=== PATIENT | female | born 1935 | race Caucasian/White ===

== ENCOUNTER 2019-05-02 10:55 | Inpatient (IN) | payer MEDICARE, OTHER ==
[2019-05-02 11:21] VITALS: BMI 28.1
[2019-05-02] MEDS: SODIUM CHLORIDE 1,000 ML IV SCH (12:31)
--- NOTE | 2019-05-02 12:38 | PDOC ---
History of Present Illness - General Chief Complaint: Weakness Stated Complaint: NUMBNESS Time Seen by Provider: 05/02/19 11:28 - History of Present Illness Initial Comments: 05/02/19 12:32 83 y/o F with PMH of HTN, HLD, Afib (on ASA), CAD, hypothyroidism, mild cognitive impairement, osteoporosis who presents to the ED because of weakness. Pt is korean speaking thus history was obtained from daughter and granddaughter. According to the family, 2 days ago she developed a loss of appetite and numbness in her fingers which resolved within 2 hours. The next day , she woke up dizzier than usual with increased weakness in her legs and fell when she attempted to exit her bedroom. She denies any blurry vision, PHILLIP, palpitation, N/V or LOC prior to fall. She admits to hitting her head and right shoulder while trying to break her fall. She persists that she maintained consciousness during and after the fall. This morning, the patient c/o headache which she has not experienced since her 20s and that it was different from her past migraine headaches. At that point, pt was taken to her PCP Dr Goodwin office ( but seen by Breann). Pt sent over to ED for head CT and further evaluation. On further questioning, family admits that pt has not taken her meds since 3 days ago, as she might have thrown them away. Pt denies any F/C, chest pain, SOB, active FND, or change in urine or BM. Per family, pt is also getting more forgetful and mildly confused from before Allergies: PCNs, General Anesthesia PSH:cataract surgery, cosmetic chin surgery Social : former smoker; quit in 50 yrs ago, no EtOH, or illicit drug use. lives at home family hx: colon cancer PE: NIHSS 0 Gen: NAD NEURO: CN 2-12 intact, motor strength 5/5 in all muscle groups, sensation intact throughout, gait at pt baseline with walker MSK: decreased ROM of the R shoulder on abduction HEENT: PERRLA, dry mucous membranes, conjuctiva/sclera clear CHEST: vesicular breath sounds b/l , no wheezing, rales or ronchi HEART: Irregularly irregular, no MRG Abdomen: +BS, mild tenderness on deep palpation of Lower abdomen extremities: no edema Assessment: based on HPI and PE DDX include: TIA ( pt has Afib, CAD, HTN , no meds for3 days prior) vs syncope (poor fluid intake, CAD, HLD, HTN) 05/02/19 12:43 Plan: CBC, CMP, mag, phos, Head and Cspine w/o contrast, r shoulder Xray to r/o fracture, EKG to r/o arrhythmia, troponin I, Pt/INR, PTT, orthostatic VS will also get UA and urine culture 1L NS for dehydration will administer all of home meds s/p results of Head CT 05/02/19 13:[address] shpwed left frontal, posterior and superiod infarct of indeterminant age. Based on finding, CVA vs TIA more likely diagnosis will obtain dysphagia screen, if pass, will resume pt home meds except for BP meds to allow for permissive HTN in case of CVA. will order an MRI w/o contrast of the brain and consider neuro consult ? 05/02/19 13:28 CBC WBC 6.8 K/mm3 (4.0-10.0) 05/02/19 11:30 RBC 4.61 M/mm3 (3.60-5.2) 05/02/19 11:30 Hgb 14.2 GM/dL (10.7-15.3) 05/02/19 11:30 Hct 42.3 % (32.4-45.2) 05/02/19 11:30 MCV 91.9 fl (80-96) 05/02/19 11:30 MCH 30.8 pg (25.7-33.7) 05/02/19 11:30 MCHC 33.6 g/dl (32.0-36.0) 05/02/19 11:30 RDW 14.9 % (11.6-15.6) 05/02/19 11:30 Plt Count 138 K/MM3 (134-434) 05/02/19 11:30 MPV 11.7 fl (7.5-11.1) H 05/02/19 11:30 Absolute Neuts (auto) 3.1 K/mm3 (1.5-8.0) 05/02/19 11:30 Neutrophils % 45.1 % (42.8-82.8) 05/02/19 11:30 Lymphocytes % 38.8 % (8-40) 05/02/19 11:30 Monocytes % 12.6 % (3.8-10.2) H 05/02/19 11:30 Eosinophils % 3.1 % (0-4.5) 05/02/19 11:30 Basophils % 0.4 % (0-2.0) 05/02/19 11:30 Nucleated RBC % 0 % (0-0) 05/02/19 11:30 INR, PTT INR 0.99 (0.83-1.09) 05/02/19 11:30 PT 11.7 PTT 33.1 CBC and coag unremarkable UA and chem pending 05/02/19 14:08 CMP Sodium 140 mmol/L (136-145) 05/02/19 11:30 Potassium 3.5 mmol/L (3.5-5.1) 05/02/19 11:30 Chloride 105 mmol/L (98-107) 05/02/19 11:30 Carbon Dioxide 29 mmol/L (21-32) 05/02/19 11:30 Anion Gap 6 MMOL/L (8-16) L 05/02/19 11:30 BUN 14.8 mg/dL (7-18) 05/02/19 11:30 Creatinine 1.0 mg/dL (0.55-1.3) 05/02/19 11:30 Est GFR (CKD-EPI)AfAm 60.33 05/02/19 11:30 Est GFR (CKD-EPI)NonAf 52.06 05/02/19 11:30 Random Glucose 87 mg/dL (74-106) 05/02/19 11:30 Calcium 8.9 mg/dL (8.5-10.1) 05/02/19 11:30 Phosphorus 2.4 mg/dL (2.5-4.9) L 05/02/19 11:30 Magnesium 2.3 mg/dL (1.8-2.4) 05/02/19 11:30 Total Bilirubin 0.8 mg/dL (0.2-1) 05/02/19 11:30 AST 56 U/L (15-37) H 05/02/19 11:30 ALT 76 U/L (13-61) H 05/02/19 11:30 Alkaline Phosphatase 105 U/L (45-117) 05/02/19 11:30 Troponin I < 0.02 ng/ml (0.00-0.05) 05/02/19 11:30 Total Protein 7.3 g/dl (6.4-8.2) 05/02/19 11:30 Albumin 3.6 g/dl (3.4-5.0) 05/02/19 11:30 hypophosphotemia and elevated LFTS will replete with kphos in the setting of no abdominal pain no need for RUQ US acutely. will sign out to admitting team to trend and if rise, to consider US UA negative Shoulder Xray without acute pathology 05/02/19 14:23 will send microblog for admission 05/02/19 15:07 Spoke with admitting team pt admitted to stroke unit 05/02/19 15:10 Past History - Past Medical History Allergies/Adverse Reactions: Allergies Allergy/AdvReac Type Severity Reaction Status Date / Time No Known Drug Allergies Allergy Verified 01/10/19 08:27 Penicillins Allergy Verified 05/02/19 11:19 GENERAL ANESTHESIA AdvReac Severe Uncoded 01/10/19 08:27 Home Medications: Ambulatory Orders Levothyroxine [Synthroid -] 25 mcg PO DAILY 11/19/15 Aspirin 81 mg PO DAILY 05/02/19 Azithromycin [Zithromax 250mg Tablets -] 250 mg PO DAILY 05/02/19 Lisinopril [Zestril] 10 mg PO DAILY 05/02/19 Nebivolol HCl [Bystolic] 10 mg PO DAILY 05/02/19 Polyethylene Glycol 3350 [Miralax (For Daily Use) -] 17 gm PO DAILY 05/02/19 Simvastatin [Zocor -] 40 mg PO HS 05/02/19 Anemia: No Asthma: No Cancer: No Cardiac Disorders: No CVA: No COPD: No CHF: No Dementia: No Diabetes: No GI Disorders: No Disorders: No HTN: Yes Hypercholesterolemia: No Liver Disease: No Seizures: No Thyroid Disease: Yes - Surgical History Abdominal Surgery: No Appendectomy: No Cardiac Surgery: No Cholecystectomy: No Lung Surgery: No - Psycho Social/Smoking Cessation Hx Smoking History: Never smoked Have you smoked in the past 12 months: No Hx Alcohol Use: No Drug/Substance Use Hx: No Substance Use Type: None Hx Substance Use Treatment: No *Physical Exam - Vital Signs Last Vital Signs Temp Pulse Resp BP Pulse Ox 97.9 F 96 H 20 170/90 95 05/02/19 11:19 05/02/19 11:19 05/02/19 11:19 05/02/19 11:19 05/02/19 11:19 ED Treatment Course - LABORATORY CBC & Chemistry Diagram: 05/02/19 11:30 05/02/19 11:30 - RADIOLOGY Radiology Studies Ordered: Category Date Time Status CERVICAL SPINE CT W/O CONTR [CT] Stat CT Scan 05/02/19 12:21 Ordered SHOULDER-RIGHT [RAD] Stat Radiology 05/02/19 12:21 Ordered Discharge - Discharge Information Problems reviewed: Yes Clinical Impression/Diagnosis: CVA (cerebral vascular accident) Qualifiers: CVA mechanism: unspecified Qualified Code(s): I63.9 - Cerebral infarction, unspecified - Admission Yes - Follow up/Referral Referrals: Billy Vegas MD [Primary Care Provider] - - Patient Discharge Instructions - Post Discharge Activity
[2019-05-02 13:26] LABS: BASO % 0.4 % (0-2.0); EOS % 3.1 % (0-4.5); HEMATOCRIT 42.3 % (32.4-45.2); HEMOGLOBIN 14.2 GM/dL (10.7-15.3); LYMPH % 38.8 % (8-40); MCH 30.8 pg (25.7-33.7); MCHC 33.6 g/dl (32.0-36.0); MEAN CELL VOLUME 91.9 fl (80-96); MEAN PLT VOLUME 11.7 fl (7.5-11.1); MONO % 12.6 % (3.8-10.2); NEUT % 45.1 % (42.8-82.8); PLATELET COUNT 138 K/MM3 (134-434); RBC 4.61 M/mm3 (3.60-5.2); RDW 14.9 % (11.6-15.6); WHITE BLOOD COUNT 6.8 K/mm3 (4.0-10.0)
[2019-05-02 13:48] LABS: INR 0.99 (0.83-1.09); PROTHROMBIN TIME (PATIENT) 11.7 SEC (9.7-13.0)
[2019-05-02 13:50] LABS: ACTIVATED PTT 33.1 SECONDS (25.2-36.5)
[2019-05-02 14:17] LABS: EPI CELLS 1.4 /HPF (0-5/HPF); HYALINE CASTS 0 /lpf (0-8); URINE APPEARANCE CLEAR; URINE BACTERIA 35.6 /hpf (NEGATIVE); URINE BILIRUBIN NEGATIVE (NEGATIVE); URINE COLOR YELLOW; URINE GLUCOSE (UA) NEGATIVE (NEGATIVE); URINE KETONE NEGATIVE (NEGATIVE); URINE LEUK ESTERASE TRACE (NEGATIVE); URINE NITRITE NEGATIVE (NEGATIVE); URINE PROTEIN NEGATIVE (NEGATIVE); URINE RBC 0 /hpf (0-4); URINE UROBILINOGEN 0.2 mg/dL (0.2-1.0); URINE WBC 1 /hpf (0-5)
[2019-05-02 14:21] LABS: ALBUMIN 3.6 g/dl (3.4-5.0); ALK PHOS 105 U/L (45-117); ANION GAP 6 MMOL/L (8-16); BILIRUBIN,TOTAL 0.8 mg/dL (0.2-1); BLOOD UREA NITROGEN 14.8 mg/dL (7-18); CALCIUM 8.9 mg/dL (8.5-10.1); CHLORIDE 105 mmol/L (98-107); CO2 29 mmol/L (21-32); GLUCOSE,RANDOM 87 mg/dL (74-106); MAGNESIUM 2.3 mg/dL (1.8-2.4); PHOSPHOROUS 2.4 mg/dL (2.5-4.9); POTASSIUM 3.5 mmol/L (3.5-5.1); SGOT/AST 56 U/L (15-37); SGPT/ALT 76 U/L (13-61); SODIUM 140 mmol/L (136-145); TOT PROT 7.3 g/dl (6.4-8.2)
[2019-05-02] MEDS ORDERED: POTASSIUM PHOSPHATE 20 MM in SODIUM CHLORIDE 250 ML IVPB ONE (14:26)
[2019-05-02] MEDS ORDERED: ATORVASTATIN CA 40 MG TABLET (FP) PO ONE (14:53)
[2019-05-02 15:51] LABS: CHOLESTEROL 264 mg/dL (50-200); HDL CHOLESTEROL 45 mg/dL (40-60); LDL CHOLESTEROL (ONLY SJRH) 178 mg/dL (5-100); TRIGLYCERIDES 247 mg/dL (0-150)
--- NOTE | 2019-05-02 16:05 | PDOC ---
Documentation entered by Otilio Cottrell SCRIBE, acting as scribe for Jefry Ortiz MD. Jefry Ortiz MD: This documentation has been prepared by the Simba joyce Daniel, SCRIBE, under my direction and personally reviewed by me in its entirety. I confirm that the documentation accurately reflects all work, treatment, procedures, and medical decision making performed by me. Attending Attestation - Resident Resident Name: Joanne Yung - ED Attending Attestation I have performed the following: I have examined & evaluated the patient, The case was reviewed & discussed with the resident, I agree w/resident's findings & plan, Exceptions are as noted - HPI HPI: 05/02/19 12:20 The patient is an 83 year old female with a past medical history of HTN, HLD, osteoporosis, hypothyroidism, and afib (aspirin) here today for evaluation of weakness. The patient reports that a couple of days ago she developed a loss of appetite and numbness in her fingers which resolved within 2 hours. She states that yesterday when she woke up she felt dizzier than usual and had a headache and fell. She states that she landed on her shoulder, hit her head, and denies any loss of consciousness. Patient currently complains of shoulder pain. As per the patients daughter, the patient is more confused. Patient denies fever, chills. Denies chest pain, shortness of breath. Denies nausea, vomiting, diarrhea, abdominal pain. Allergies: NKDA, penicillins, general anesthesia PCP: Tiffanie Crain - Physicial Exam PE: 05/02/19 16:31 Vitals: Triage Vital signs reviewed General Appearance: No acute distress, well nourished well developed, Head: Atraumatic, Eyes: Pupils equal reactive round, extraocular movement intact Cardiac: Irregularly irregular Lungs: Clear to auscultation bilateral, good air movement bilaterally, Abdomen: Soft, non distended, normal bowel sounds, non tender to palpation Extremities: Full range of motion to all extremities, no cyanosis, clubbing, or edema Skin: Warm and dry, no rashes or lesions, no rash, no petechiae Neuro:Cranial Nerves 2-12 grossly intact, strength intact to all extremities, sensation intact to all extremities, gait normal Psych: Normal mood, normal affect - Medical Decision Making 05/02/19 16: Syncopal episode alert and oriented now nonfocal neurologic exam NIHSS score 0 Syncope work-up labs EKG troponin observe and reassess Reevaluation CT discussed with radiology possible subacute infarct will admit to medicine for neurology consultation MRI and further evaluation of possible subacute CVA No indication for TPA at this time Heart Score/ECG Review - ECG Impressions Comment:: 05/02/19 16:33 EKG demonstrates rate controlled A. fib no ST elevations or T wave inversions Interpreted by me 05/02/19 16:33
[2019-05-02] MEDS ORDERED: ATORVASTATIN CA 40 MG TABLET (FP) ONE ×2 (16:35→23:14)
--- NOTE | 2019-05-02 17:10 | HP ---
CHIEF COMPLAINT: weakness PCP:Dr. Vegas HISTORY OF PRESENT ILLNESS: Patient is an 83 year old female with past medical history of HTN, HLD, Atrial fibrillation, CAD, Hypothyroidism, mild cognitive impairment, osteoporosis, presented to the ED due to weakness. Patient at bedside to aide with diagnosis. Patient reportedly experienced numbness of fingers of both hands 2 days ago that resolved spontaneously in a few hours. Yesterday, patient reported to have dizziness, that she had a mechanical fall on turning her head, falling on her right side and hitting her right shoulder and head. Denies LOC or seizures. Today, patient had severe headache, that she was brought to her PCP's office, and was told to come to the ED for further evaluation. Of note, patient has not taken her medications the past 3 days, as family believed she might have thrown it out/ Currently, patient denies any fever, chills, headache, dizziness, chest pain, SOB, nausea, vomiting, abdominal pain, diarrhea. Denies weakness, numbness , or tingling. ER course was notable for: (1)Head CT: moderate atrophy and ventricular dilatation. Focal encephalomalacia/ chronic infarct in the left frontal lobe, anteriorly. There is also suggestion of a focal infarct in the Left frontal lobe, posteriorly/superiorly , of indeterminate age. (2)Brain MRI: Acute left parietal cortical and right cerebellar infarcts are seen. THe acute right cerebellar infarct contains a small amount of petechial blood. 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 (3) Recent Travel: denies PAST MEDICAL HISTORY: HTN HLD Atrial fibrillation CAD Hypothyroidism mild cognitive impairment osteoporosis PAST SURGICAL HISTORY: Social History: Smoking:denies Alcohol:denies Drugs: denies Allergies No Known Drug Allergies Allergy (Verified 01/10/19 08:27) Penicillins Allergy (Verified 05/02/19 11:19) GENERAL ANESTHESIA Adverse Reaction (Severe, Uncoded 01/10/19 08:27) "CARDIAC ARREST AFTER GENERAL ANESTHESIA FOR COSMETIC FACIAL SURGERY.' "MANY YEARS AGO HOME MEDICATIONS: Home Medications Medication Instructions Recorded Levothyroxine [Synthroid -] 25 mcg PO DAILY 11/19/15 Aspirin 81 mg PO DAILY 05/02/19 Azithromycin [Zithromax 250mg 250 mg PO DAILY 05/02/19 Tablets -] Lisinopril [Zestril] 10 mg PO DAILY 05/02/19 Nebivolol HCl [Bystolic] 10 mg PO DAILY 05/02/19 Polyethylene Glycol 3350 [Miralax 17 gm PO DAILY 05/02/19 (For Daily Use) -] Simvastatin [Zocor -] 40 mg PO HS 05/02/19 REVIEW OF SYSTEMS CONSTITUTIONAL: Absent: fever, chills, diaphoresis, generalized weakness, malaise, loss of appetite, weight change HEENT: Absent: rhinorrhea, nasal congestion, throat pain, throat swelling, difficulty swallowing, mouth swelling, ear pain, eye pain, visual changes CARDIOVASCULAR: Absent: chest pain, syncope, palpitations, irregular heart rate, lightheadedness , peripheral edema RESPIRATORY: Absent: cough, shortness of breath, dyspnea with exertion, orthopnea, wheezing, stridor, hemoptysis GASTROINTESTINAL: Absent: abdominal pain, abdominal distension, nausea, vomiting, diarrhea, constipation, melena, hematochezia GENITOURINARY: Absent: dysuria, frequency, urgency, hesitancy, hematuria, flank pain, genital pain MUSCULOSKELETAL: Absent: myalgia, arthralgia, joint swelling, back pain, neck pain SKIN: Absent: rash, itching, pallor HEMATOLOGIC/IMMUNOLOGIC: Absent: easy bleeding, easy bruising, lymphadenopathy, frequent infections ENDOCRINE: Absent: unexplained weight gain, unexplained weight loss, heat intolerance, cold intolerance NEUROLOGIC: Absent: headache, focal weakness or paresthesias, dizziness, unsteady gait, seizure, mental status changes, bladder or bowel incontinence PSYCHIATRIC: Absent: anxiety, depression, suicidal or homicidal ideation, hallucinations. PHYSICAL EXAMINATION Vital Signs - 24 hr 05/02/19 05/02/19 05/02/19 11:19 11:21 14:27 Temperature 97.9 F 98.6 F Pulse Rate 96 H Pulse Rate [ 86 Left Apical] Pulse Rate [ 88 Left side Sitting] Pulse Rate [ 98 H Left side Standing] Pulse Rate [ 89 Left side Supine] Respiratory 20 16 Rate Blood Pressure 170/90 Blood Pressure 178/78 H [Left side Sitting] Blood Pressure 141/81 [Left side Standing] Blood Pressure 168/78 [Left side Supine] Blood Pressure 130/71 [Left] O2 Sat by Pulse 95 98 Oximetry (%) GENERAL: Awake, alert, and fully oriented, in no acute distress. HEAD: Normal with no signs of trauma. EYES: PERRLA, EOMI, sclera anicteric, conjunctiva clear. EARS, NOSE, THROAT: Dry mucous membranes. NECK: Normal range of motion, supple without lymphadenopathy, JVD, or masses. LUNGS: Breath sounds equal, clear to auscultation bilaterally. HEART: Regular rate and rhythm, normal S1 and S2 without murmur, rub or gallop. ABDOMEN: Soft, nontender, not distended, normoactive bowel sounds. MUSCULOSKELETAL: Normal range of motion at all joints. UPPER EXTREMITIES: 2+ pulses, warm, well-perfused. No peripheral edema. LOWER EXTREMITIES: 2+ pulses, warm, well-perfused. No peripheral edema. NEUROLOGICAL: Cranial nerves II-XII intact. Normal speech. Gait not observed. Motor strength 5/5, sensation intact on all extremities. PSYCHIATRIC: Cooperative. Good eye contact. SKIN: Warm, dry, normal turgor. Laboratory Results - last 24 hr 05/02/19 05/02/19 05/02/19 11:30 11:30 11:30 WBC 6.8 RBC 4.61 Hgb 14.2 Hct 42.3 MCV 91.9 MCH 30.8 MCHC 33.6 RDW 14.9 Plt Count 138 MPV 11.7 H Absolute Neuts (auto) 3.1 Neutrophils % 45.1 Lymphocytes % 38.8 Monocytes % 12.6 H Eosinophils % 3.1 Basophils % 0.4 Nucleated RBC % 0 PT with INR 11.70 INR 0.99 PTT (Actin FS) 33.1 Sodium 140 Potassium 3.5 Chloride 105 Carbon Dioxide 29 Anion Gap 6 L BUN 14.8 Creatinine 1.0 Est GFR (CKD-EPI)AfAm 60.33 Est GFR (CKD-EPI)NonAf 52.06 Random Glucose 87 Calcium 8.9 Phosphorus 2.4 L Magnesium 2.3 Total Bilirubin 0.8 AST 56 H ALT 76 H Alkaline Phosphatase 105 Troponin I < 0.02 Total Protein 7.3 Albumin 3.6 Triglycerides 247 H Cholesterol 264 H Total LDL Cholesterol 178 H HDL Cholesterol 45 Vitamin B12 722 TSH 5.16 H Urine Color Urine Appearance Urine pH Ur Specific [place] Urine Protein Urine Glucose (UA) Urine Ketones Urine Blood Urine Nitrite Urine Bilirubin Urine Urobilinogen Ur Leukocyte Esterase Urine WBC (Auto) Urine RBC (Auto) Urine Casts (Auto) U Epithel Cells (Auto) Urine Bacteria (Auto) 05/02/19 11:30 WBC RBC Hgb Hct MCV MCH MCHC RDW Plt Count MPV Absolute Neuts (auto) Neutrophils % Lymphocytes % Monocytes % Eosinophils % Basophils % Nucleated RBC % PT with INR INR PTT (Actin FS) Sodium Potassium Chloride Carbon Dioxide Anion Gap BUN Creatinine Est GFR (CKD-EPI)AfAm Est GFR (CKD-EPI)NonAf Random Glucose Calcium Phosphorus Magnesium Total Bilirubin AST ALT Alkaline Phosphatase Troponin I Total Protein Albumin Triglycerides Cholesterol Total LDL Cholesterol HDL Cholesterol Vitamin B12 TSH Urine Color Yellow Urine Appearance Clear Urine pH 7.0 Ur Specific [place] 1.004 L Urine Protein Negative Urine Glucose (UA) Negative Urine Ketones Negative Urine Blood Negative Urine Nitrite Negative Urine Bilirubin Negative Urine Urobilinogen 0.2 Ur Leukocyte Esterase Trace Urine WBC (Auto) 1 Urine RBC (Auto) 0 Urine Casts (Auto) 0 U Epithel Cells (Auto) 1.4 Urine Bacteria (Auto) 35.6 ASSESSMENT/PLAN: Patient is an 83 year old female with past medical history of HTN, HLD, Atrial fibrillation, CAD, Hypothyroidism, mild cognitive impairment, osteoporosis, presented to the ED due to weakness. #CVA -Head CT: moderate atrophy and ventricular dilatation. Focal encephalomalacia/ chronic infarct in the left frontal lobe, anteriorly. There is also suggestion of a focal infarct in the Left frontal lobe, posteriorly/superiorly , of indeterminate age. -Brain MRI: Acute left parietal cortical and right cerebellar infarcts are seen. THe acute right cerebellar infarct contains a small amount of petechial blood. 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 -Lipitor 40mg -echo -carotid doppler -Neurology (Dr. Marley) consulted. -HOB elevated -dysphagia precautions -physical therapy -neurochecks #HTN -hold meds for now for permissive hypertension #HLD -will switch simvastatin to lipitor #Atrial Fibrillation -rate controlled. Not on any AC #Hypothyroidism -Continue synthroid #FEN -IV NS @83cc/hr -Electrolytes wnl, routine bmp monitoring -Passed bedside swallow eval. Soft diet #Prophylaxis -Lovenox 40mg sq daily #Disposition -admit to tele Visit type - Emergency Visit Emergency Visit: Yes ED Registration Date: 05/02/19 Care time: The patient presented to the Emergency Department on the above date and was hospitalized for further evaluation of their emergent condition. - New Patient This patient is new to me today: Yes Date on this admission: 05/02/19 - Critical Care Critical Care patient: No ATTENDING PHYSICIAN STATEMENT I saw and evaluated the patient. I reviewed the resident's note and discussed the case with the resident. I agree with the resident's findings and plan as documented. SUBJECTIVE: OBJECTIVE: ASSESSMENT AND PLAN:
[2019-05-02] MEDS ORDERED: ONDANSETRON 4 MG TABLET PO ONE (17:45)
[2019-05-02] MEDS ORDERED: ONDANSETRON *ODT* 4 MG TABLET ONE (18:22)
[2019-05-02] MEDS ORDERED: ATORVASTATIN CA 40 MG TABLET (FP) PO SCH (22:00)
--- NOTE | 2019-05-02 22:37 | PN ---
Teaching Attending Note Name of Resident: Nery Dobbs ATTENDING PHYSICIAN STATEMENT I saw and evaluated the patient. I reviewed the resident's note and discussed the case with the resident. I agree with the resident's findings and plan as documented. 83 F HTN, HLD, Atrial fibrillation, CAD, Hypothyroidism, mild cognitive impairment, osteoporosis, presented to the ED due to weakness and dizziness. Patient endorses over the past 2 days feeling dizziness when turning her head and weakness in hands. PE GA comfortable, AAox3, speaking in full sentences, bedside swallow unremarkable HEENT NC/AT, EOMI, neck supple, trachea midline, face symmetrical Chest CTAB, no crackles or wheezing CVS S1, S2+, RRR Abd Soft, NT, ND, BS+ Ext No LE edema, sensation intact and equal UE and LE, moves all 4 ext. NEuro: normal mood and affect, CN 2-12 grossly intact, symmetrical facial features, good strength UE and LE Vital Signs - 24 hr 05/02/19 05/02/19 05/02/19 11:19 11:21 14:27 Temperature 97.9 F 98.6 F Pulse Rate 96 H Pulse Rate [ 86 Left Apical] Pulse Rate [ 88 Left side Sitting] Pulse Rate [ 98 H Left side Standing] Pulse Rate [ 89 Left side Supine] Respiratory 20 16 Rate Blood Pressure 170/90 Blood Pressure 178/78 H [Left side Sitting] Blood Pressure 141/81 [Left side Standing] Blood Pressure 168/78 [Left side Supine] Blood Pressure 130/71 [Left] Blood Pressure [Right Arm] O2 Sat by Pulse 95 98 Oximetry (%) 05/02/19 21:25 Temperature 98.1 F Pulse Rate Pulse Rate [ 88 Left Apical] Pulse Rate [ Left side Sitting] Pulse Rate [ Left side Standing] Pulse Rate [ Left side Supine] Respiratory 16 Rate Blood Pressure Blood Pressure [Left side Sitting] Blood Pressure [Left side Standing] Blood Pressure [Left side Supine] Blood Pressure [Left] Blood Pressure 155/94 [Right Arm] O2 Sat by Pulse 94 L Oximetry (%) Laboratory Results - last 24 hr 05/02/19 05/02/19 05/02/19 11:30 11:30 11:30 WBC 6.8 RBC 4.61 Hgb 14.2 Hct 42.3 MCV 91.9 MCH 30.8 MCHC 33.6 RDW 14.9 Plt Count 138 MPV 11.7 H Absolute Neuts (auto) 3.1 Neutrophils % 45.1 Lymphocytes % 38.8 Monocytes % 12.6 H Eosinophils % 3.1 Basophils % 0.4 Nucleated RBC % 0 PT with INR 11.70 INR 0.99 PTT (Actin FS) 33.1 Sodium 140 Potassium 3.5 Chloride 105 Carbon Dioxide 29 Anion Gap 6 L BUN 14.8 Creatinine 1.0 Est GFR (CKD-EPI)AfAm 60.33 Est GFR (CKD-EPI)NonAf 52.06 Random Glucose 87 Calcium 8.9 Phosphorus 2.4 L Magnesium 2.3 Total Bilirubin 0.8 AST 56 H ALT 76 H Alkaline Phosphatase 105 Troponin I < 0.02 Total Protein 7.3 Albumin 3.6 Triglycerides 247 H Cholesterol 264 H Total LDL Cholesterol 178 H HDL Cholesterol 45 Vitamin B12 722 TSH 5.16 H Urine Color Urine Appearance Urine pH Ur Specific [place] Urine Protein Urine Glucose (UA) Urine Ketones Urine Blood Urine Nitrite Urine Bilirubin Urine Urobilinogen Ur Leukocyte Esterase Urine WBC (Auto) Urine RBC (Auto) Urine Casts (Auto) U Epithel Cells (Auto) Urine Bacteria (Auto) 05/02/19 11:30 WBC RBC Hgb Hct MCV MCH MCHC RDW Plt Count MPV Absolute Neuts (auto) Neutrophils % Lymphocytes % Monocytes % Eosinophils % Basophils % Nucleated RBC % PT with INR INR PTT (Actin FS) Sodium Potassium Chloride Carbon Dioxide Anion Gap BUN Creatinine Est GFR (CKD-EPI)AfAm Est GFR (CKD-EPI)NonAf Random Glucose Calcium Phosphorus Magnesium Total Bilirubin AST ALT Alkaline Phosphatase Troponin I Total Protein Albumin Triglycerides Cholesterol Total LDL Cholesterol HDL Cholesterol Vitamin B12 TSH Urine Color Yellow Urine Appearance Clear Urine pH 7.0 Ur Specific [place] 1.004 L Urine Protein Negative Urine Glucose (UA) Negative Urine Ketones Negative Urine Blood Negative Urine Nitrite Negative Urine Bilirubin Negative Urine Urobilinogen 0.2 Ur Leukocyte Esterase Trace Urine WBC (Auto) 1 Urine RBC (Auto) 0 Urine Casts (Auto) 0 U Epithel Cells (Auto) 1.4 Urine Bacteria (Auto) 35.6 Home Medications Medication Instructions Recorded Levothyroxine [Synthroid -] 25 mcg PO DAILY 11/19/15 Aspirin 81 mg PO DAILY 05/02/19 Azithromycin [Zithromax 250mg 250 mg PO DAILY 05/02/19 Tablets -] Lisinopril [Zestril] 10 mg PO DAILY 05/02/19 Nebivolol HCl [Bystolic] 10 mg PO DAILY 05/02/19 Polyethylene Glycol 3350 [Miralax 17 gm PO DAILY 05/02/19 (For Daily Use) -] Simvastatin [Zocor -] 40 mg PO HS 05/02/19 Current Medications Generic Name Dose Route Start Last Admin Trade Name Ajayq PRN Reason Stop Dose Admin Atorvastatin Calcium 40 mg 05/02/19 22:00 Lipitor - PO HS LUZMARIA Sodium Chloride 1,000 mls @ 83 mls/hr 05/02/19 12:30 05/02/19 12:31 Normal Saline - IV 83 mls/hr ASDIR LUZMARIA Administration Levothyroxine Sodium 25 mcg 05/03/19 07:00 Synthroid - PO DAILY@0700 LUZMARIA Polyethylene Glycol 17 gm 05/03/19 10:00 Miralax (For Daily Use) - PO DAILY LUZMARIA A/P: 83 F h/o HTN, HLD, Atrial fibrillation, CAD, Hypothyroidism, mild cognitive impairment, osteoporosis, admitted for acute CVA. Acute CVA Head CT: moderate atrophy and ventricular dilatation. Focal encephalomalacia/ chronic infarct in the left frontal lobe, anteriorly. There is also suggestion of a focal infarct in the Left frontal lobe, posteriorly/superiorly , of indeterminate age. Brain MRI: Acute left parietal cortical and right cerebellar infarcts are seen. THe acute right cerebellar infarct contains a small amount of petechial blood. 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 Statin, hold ASA/AC due to petechial hemorrhage in cerebellum, permissive hypertension unless BP exceeds >180/110 PT evaluation, bedside swallow test unremarkable, serial neuro exams, tele monitoring Neuro evaluation HTN -hold meds for now for permissive hypertension HLD Lipitor 40 Afib rate controlled, hold AC Hypothyroidism Continue synthroid DVT ppx: SCD Admit to telemetry
[2019-05-03 07:32] LABS: BASO % 0.4 % (0-2.0); EOS % 4.4 % (0-4.5); HEMATOCRIT 40.7 % (32.4-45.2); HEMOGLOBIN 13.6 GM/dL (10.7-15.3); LYMPH % 43.9 % (8-40); MCH 30.3 pg (25.7-33.7); MCHC 33.3 g/dl (32.0-36.0); MEAN PLT VOLUME 10.9 fl (7.5-11.1); MONO % 10.6 % (3.8-10.2); NEUT % 40.7 % (42.8-82.8); PLATELET COUNT 142 K/MM3 (134-434); RBC 4.47 M/mm3 (3.60-5.2); RDW 14.6 % (11.6-15.6); WHITE BLOOD COUNT 6.6 K/mm3 (4.0-10.0)
--- NOTE | 2019-05-03 07:38 | PN ---
Progress Note, Physician Chief Complaint: Bengali speaking. Grand-daughter translated. Poor historian. States she remembers both falls-felt dizzy before first fall, second fall without symptoms prior History of Present Illness: 83 F h/o HTN, HLD, Atrial fibrillation, CAD, Hypothyroidism, mild cognitive impairment, osteoporosis, admitted for acute CVA after 2 falls at home - Current Medication List Current Medications: Active Medications Atorvastatin Calcium (Lipitor -) 40 mg PO HS LUZMARIA Last Admin: 05/02/19 23:19 Dose: 40 mg Sodium Chloride (Normal Saline -) 1,000 mls @ 83 mls/hr IV ASDIR LUZMARIA Last Admin: 05/02/19 12:31 Dose: 83 mls/hr Levothyroxine Sodium (Synthroid -) 25 mcg PO DAILY@0700 LUZMARIA Polyethylene Glycol (Miralax (For Daily Use) -) 17 gm PO DAILY [facility] - Objective Vital Signs: Vital Signs Temperature 98.1 F 05/03/19 06:13 Pulse Rate 92 H 05/03/19 06:13 Respiratory Rate 16 05/03/19 06:13 Blood Pressure 118/77 05/03/19 06:13 O2 Sat by Pulse Oximetry (%) 96 05/03/19 01:33 Constitutional: Yes: Well Nourished, No Distress, Calm Eyes: Yes: WNL, Conjunctiva Clear HENT: Yes: WNL, Atraumatic, Normocephalic Neck: Yes: WNL, Supple, Trachea Midline Cardiovascular: Yes: WNL, Regular Rate and Rhythm Respiratory: Yes: WNL, Regular, CTA Bilaterally Gastrointestinal: Yes: WNL, Normal Bowel Sounds ...Rectal Exam: Yes: Deferred Genitourinary: Yes: WNL Breast(s): Yes: WNL Musculoskeletal: Yes: WNL Edema: No Peripheral Pulses WNL: Yes Peripheral Pulses: Left Radial: 2+, Right Radial: 2+, Left Doralis Pedis: 2+, Right Dorsalis Pedis: 2+, Left Femoral: 2+, Right Femoral: 2+ Integumentary: Yes: WNL ...Motor Strength: LLE, RLE (ambulates with cane at home) Psychiatric: Yes: WNL Labs: INR, PTT INR 0.99 (0.83-1.09) 05/02/19 11:30 - ....Imaging Cat Scan: Report Reviewed (Head CT: moderate atrophy and ventricular dilatation. Focal encephalomalacia/chronic infarct in the left frontal lobe, anteriorly. There is also suggestion of a focal infarct in the Left frontal lobe , posteriorly/superiorly , of indeterminate age.) MRI: Report Reviewed (Brain MRI: Acute left parietal cortical and right cerebellar infarcts are seen. The acute right cerebellar infarct contains a small amount of petechial blood. 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.) Problem List - Problems (1) HTN (hypertension) Assessment/Plan: on lisinipril at home hold to allow for permissive htn Code(s): I10 - ESSENTIAL (PRIMARY) HYPERTENSION (2) HLD (hyperlipidemia) Assessment/Plan: lipitor at logan will increase dose to 80mg qhs Code(s): E78.5 - HYPERLIPIDEMIA, UNSPECIFIED (3) A-fib Assessment/Plan: Aflutter on EKG with variable AV block on bystolic at home will restart BB, will higher hold parameters to allow for Cerebral perfusion no AC at home, will discuss with cardiology regarding AC Code(s): I48.91 - UNSPECIFIED ATRIAL FIBRILLATION (4) CAD (coronary artery disease) Assessment/Plan: EKG with nonspecific T wave abnml .no c/o chest pain cont to trend trop c/w asa 81mg cardiology to see pt Code(s): I25.10 - ATHSCL HEART DISEASE OF [place] CORONARY ARTERY W/O ANG PCTRS (5) Hypothyroidism Assessment/Plan: c/w synthroid TSH 5.75, will re-evaluate as outpt Code(s): E03.9 - HYPOTHYROIDISM, UNSPECIFIED (6) Mild cognitive impairment Assessment/Plan: supportive care fall precautions PT Code(s): G31.84 - MILD COGNITIVE IMPAIRMENT, SO STATED (7) Age related osteoporosis Code(s): M81.0 - AGE-RELATED OSTEOPOROSIS W/O CURRENT PATHOLOGICAL FRACTURE (8) Weakness Assessment/Plan: generalized weakness due to deconditioning PT evaluation Code(s): R53.1 - WEAKNESS (9) Prophylactic measure Assessment/Plan: FEN Fluids: adequate PO intake Electrolytes: monitor & replete as needed Nutrition: low Na, fat soft diet DVT moderate risk high risk for falls, SCD Dispo Maintain as inpatient full code discharge planning Code(s): Z29.9 - ENCOUNTER FOR PROPHYLACTIC MEASURES, UNSPECIFIED (10) CVA (cerebral vascular accident) Assessment/Plan: CT with right cerebellar infarct medication non-compliance at home c/w statin at higher dose c/w low dose asa, high risk for fall and bleed carotid dopplers without significant stenosis Code(s): I63.9 - CEREBRAL INFARCTION, UNSPECIFIED Qualifiers: CVA mechanism: unspecified Qualified Code(s): I63.9 - Cerebral infarction, unspecified (11) Inferior ST segment depression Assessment/Plan: nonspecific T wave abnml on EKG trop .02 will send trend cardiology to see Code(s): R94.31 - ABNORMAL ELECTROCARDIOGRAM [ECG] [EKG] Visit type - Emergency Visit Emergency Visit: Yes ED Registration Date: 05/02/19 Care time: The patient presented to the Emergency Department on the above date and was hospitalized for further evaluation of their emergent condition. - New Patient This patient is new to me today: Yes Date on this admission: 05/03/19 - Critical Care Critical Care patient: No - Discharge Referral Referred to [facility] Med [facility] No
[2019-05-03] MEDS ORDERED: LEVOTHYROXINE NA 25 MCG TABLET (FP) ONE (07:44)
[2019-05-03] MEDS: LEVOTHYROXINE NA 25 MCG TABLET (FP) PO SCH (07:45)
[2019-05-03 08:02] LABS: ALBUMIN 3.3 g/dl (3.4-5.0); BILIRUBIN,TOTAL 0.9 mg/dL (0.2-1); BLOOD UREA NITROGEN 12.9 mg/dL (7-18); CALCIUM 8.9 mg/dL (8.5-10.1); MAGNESIUM 2.1 mg/dL (1.8-2.4); POTASSIUM 3.9 mmol/L (3.5-5.1); TOT PROT 6.9 g/dl (6.4-8.2)
--- NOTE | 2019-05-03 08:38 | CONSULT ---
Consult - text type - Consultation Consultation Note: Neurology CHIEF COMPLAINT: weakness PCP:Dr. Vegas HISTORY OF PRESENT ILLNESS: Patient is an 83 year old female with past medical history of HTN, HLD, Atrial fibrillation, CAD, Hypothyroidism, mild cognitive impairment, osteoporosis, presented to the ED due to weakness. Patient at bedside to aide with diagnosis. Patient reportedly experienced numbness of fingers of both hands 2 days prior admission that resolved spontaneously in a few hours.On day prior to admission, patient reported to have dizziness, that she had a mechanical fall on turning her head, falling on her right side and hitting her right shoulder and head. Denied LOC or seizures. On day of admission, patient had severe headache, that she was brought to her PCP's office, and was told to come to the ED for further evaluation. Of note, patient had not taken her medications the past 3 days, as family believed she might have thrown it out. Patient denied any fever, chills, headache, dizziness, chest pain, SOB, nausea, vomiting, abdominal pain, diarrhea. Denied weakness, numbness, or tingling. Head CT performed and showed moderate atrophy and ventricular dilatation. Focal encephalomalacia/chronic infarct in the left frontal lobe, anteriorly. There is also suggestion of a focal infarct in the Left frontal lobe, posteriorly/superiorly , of indeterminate age. Brain MRI also performed and showed acute left parietal cortical and right cerebellar infarcts are seen. The acute right cerebellar infarct contains a small amount of petechial blood. 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 CT of cervical spine reviewed and demonstrated multilevel degenerative disease with mild anterior and posterior disc osteophyte complex as well as b/l uncovertebral hypertrophy. Fusion of C7- T1 posterior elements. Carotid ultrasound completed and awaiting official report. Distribution of infarcts suspicious for embolic phenomenon and will defer to cardiology regarding further management of atrial fibrillation and whether anticoagulation would be dictated. Of note, patient was not taking medication for several days and acute infarcts may be as a result. For now, would continue aspirin 81 mg and recommended medication compliance. Of note, LDL highly elevated to 182, possibly noncompliance? Advise increasing statin to 80mg. Recent Travel: denies PAST MEDICAL HISTORY: HTN HLD Atrial fibrillation CAD Hypothyroidism mild cognitive impairment osteoporosis PAST SURGICAL HISTORY: denies Family History: HTN Social History: Smoking:denies Alcohol:denies Drugs: denies REVIEW OF SYSTEMS CONSTITUTIONAL: Absent: fever, chills, diaphoresis, generalized weakness, malaise, loss of appetite, weight change HEENT: Absent: rhinorrhea, nasal congestion, throat pain, throat swelling, difficulty swallowing, mouth swelling, ear pain, eye pain, visual changes CARDIOVASCULAR: Absent: chest pain, syncope, palpitations, irregular heart rate, lightheadedness , peripheral edema RESPIRATORY: Absent: cough, shortness of breath, dyspnea with exertion, orthopnea, wheezing, stridor, hemoptysis GASTROINTESTINAL: Absent: abdominal pain, abdominal distension, nausea, vomiting, diarrhea, constipation, melena, hematochezia GENITOURINARY: Absent: dysuria, frequency, urgency, hesitancy, hematuria, flank pain, genital pain MUSCULOSKELETAL: Absent: myalgia, arthralgia, joint swelling, back pain, neck pain SKIN: Absent: rash, itching, pallor HEMATOLOGIC/IMMUNOLOGIC: Absent: easy bleeding, easy bruising, lymphadenopathy, frequent infections ENDOCRINE: Absent: unexplained weight gain, unexplained weight loss, heat intolerance, cold intolerance NEUROLOGIC: Absent: headache, focal weakness or paresthesias, dizziness, unsteady gait, seizure, mental status changes, bladder or bowel incontinence PSYCHIATRIC: Absent: anxiety, depression, suicidal or homicidal ideation, hallucinations. Allergies No Known Drug Allergies Allergy (Verified 01/10/19 08:27) Penicillins Allergy (Verified 05/02/19 11:19) GENERAL ANESTHESIA Adverse Reaction (Severe, Uncoded 01/10/19 08:27) "CARDIAC ARREST AFTER GENERAL ANESTHESIA FOR COSMETIC FACIAL SURGERY.' "MANY YEARS AGO HOME MEDICATIONS: Home Medications Medication Instructions Recorded Levothyroxine [Synthroid -] 25 mcg PO DAILY 11/19/15 Aspirin 81 mg PO DAILY 05/02/19 Azithromycin [Zithromax 250mg 250 mg PO DAILY 05/02/19 Tablets -] Lisinopril [Zestril] 10 mg PO DAILY 05/02/19 Nebivolol HCl [Bystolic] 10 mg PO DAILY 05/02/19 Polyethylene Glycol 3350 [Miralax 17 gm PO DAILY 05/02/19 (For Daily Use) -] Simvastatin [Zocor -] 40 mg PO HS 05/02/19 Active Medications Atorvastatin Calcium (Lipitor -) 40 mg PO HS LUZMARIA Last Admin: 05/02/19 23:19 Dose: 40 mg Sodium Chloride (Normal Saline -) 1,000 mls @ 83 mls/hr IV ASDIR [facility] Last Admin: 05/02/19 12:31 Dose: 83 mls/hr Levothyroxine Sodium (Synthroid -) 25 mcg PO DAILY@0700 [facility] Last Admin: 05/03/19 07:45 Dose: 25 mcg Polyethylene Glycol (Miralax (For Daily Use) -) 17 gm PO DAILY [facility] PHYSICAL EXAMINATION Vital Signs Period Temp Pulse Resp BP Sys/Douglass Pulse Ox Last 24 Hr 97.9 F-98.6 F 80-98 16-20 118-178/71-94 94-98 GENERAL: Awake, alert, and fully oriented, in no acute distress. HEAD: Normal with no signs of trauma. EYES: PERRLA, EOMI, sclera anicteric, conjunctiva clear. EARS, NOSE, THROAT: Dry mucous membranes. NECK: Normal range of motion, supple without lymphadenopathy, JVD, or masses. LUNGS: Breath sounds equal, clear to auscultation bilaterally. HEART: Regular rate and rhythm, normal S1 and S2 without murmur, rub or gallop. ABDOMEN: Soft, nontender, not distended, normoactive bowel sounds. MUSCULOSKELETAL: Normal range of motion at all joints. UPPER EXTREMITIES: 2+ pulses, warm, well-perfused. No peripheral edema. LOWER EXTREMITIES: 2+ pulses, warm, well-perfused. No peripheral edema. NEUROLOGICAL: Cranial nerves II-XII intact. Normal speech. Gait not observed. Motor strength 5/5, sensation intact on all extremities. PSYCHIATRIC: Cooperative. Good eye contact. SKIN: Warm, dry, normal turgor. CBCD WBC 6.6 K/mm3 (4.0-10.0) 05/03/19 06:20 RBC 4.47 M/mm3 (3.60-5.2) 05/03/19 06:20 Hgb 13.6 GM/dL (10.7-15.3) 05/03/19 06:20 Hct 40.7 % (32.4-45.2) 05/03/19 06:20 MCV 91.0 fl (80-96) 05/03/19 06:20 MCHC 33.3 g/dl (32.0-36.0) 05/03/19 06:20 RDW 14.6 % (11.6-15.6) 05/03/19 06:20 Plt Count 142 K/MM3 (134-434) 05/03/19 06:20 MPV 10.9 fl (7.5-11.1) 05/03/19 06:20 CMP Sodium 142 mmol/L (136-145) 05/03/19 06:20 Potassium 3.9 mmol/L (3.5-5.1) 05/03/19 06:20 Chloride 109 mmol/L (98-107) H 05/03/19 06:20 Carbon Dioxide 27 mmol/L (21-32) 05/03/19 06:20 Anion Gap 6 MMOL/L (8-16) L 05/03/19 06:20 BUN 12.9 mg/dL (7-18) 05/03/19 06:20 Creatinine 1.0 mg/dL (0.55-1.3) 05/03/19 06:20 Random Glucose 85 mg/dL (74-106) 05/03/19 06:20 Calcium 8.9 mg/dL (8.5-10.1) 05/03/19 06:20 Total Bilirubin 0.9 mg/dL (0.2-1) 05/03/19 06:20 AST 43 U/L (15-37) H 05/03/19 06:20 ALT 61 U/L (13-61) 05/03/19 06:20 Alkaline Phosphatase 87 U/L (45-117) 05/03/19 06:20 Total Protein 6.9 g/dl (6.4-8.2) 05/03/19 06:20 Albumin 3.3 g/dl (3.4-5.0) L 05/03/19 06:20 CARDIAC ENZYMES Troponin I < 0.02 ng/ml (0.00-0.05) 05/02/19 11:30 ASSESSMENT/PLAN: Patient is an 83 year old female with past medical history of HTN, HLD, Atrial fibrillation, CAD, Hypothyroidism, mild cognitive impairment, osteoporosis, presented to the ED due to weakness. Patient at bedside to aide with diagnosis. Patient reportedly experienced numbness of fingers of both hands 2 days prior admission that resolved spontaneously in a few hours.On day prior to admission, patient reported to have dizziness, that she had a mechanical fall on turning her head, falling on her right side and hitting her right shoulder and head. Denied LOC or seizures. On day of admission, patient had severe headache, that she was brought to her PCP's office, and was told to come to the ED for further evaluation. Of note, patient has not taken her medications the past 3 days, as family believed she might have thrown it out. Patient denied any fever, chills, headache, dizziness, chest pain, SOB, nausea, vomiting, abdominal pain, diarrhea. Denied weakness, numbness, or tingling. Head CT performed and showed moderate atrophy and ventricular dilatation. Focal encephalomalacia/chronic infarct in the left frontal lobe, anteriorly. There is also suggestion of a focal infarct in the Left frontal lobe, posteriorly/superiorly , of indeterminate age. Brain MRI also performed and showed acute left parietal cortical and right cerebellar infarcts are seen. The acute right cerebellar infarct contains a small amount of petechial blood. 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 CT of cervical spine reviewed and demonstrated multilevel degenerative disease with mild anterior and posterior disc osteophyte complex as well as b/l uncovertebral hypertrophy. Fusion of C7- T1 posterior elements. Carotid ultrasound completed and awaiting official report. Distribution of infarcts suspicious for embolic phenomenon and will defer to cardiology regarding further management of atrial fibrillation and whether anticoagulation would be dictated. Of note, patient was not taking medication for several days and acute infarcts may be as a result. For now, would continue aspirin 81 mg and recommended medication compliance. Cardiology follow up regarding atrial fibrillation, monitor blood pressure, maintain < 160 /90 for now. Of note, LDL highly elevated to 182, possibly noncompliance? Advise increasing statin to 80mg. Physical therapy as tolerated.
[2019-05-03] MEDS ORDERED: ASPIRIN COATED 81 MG TABLET.EC PO SCH (10:00)
[2019-05-03] MEDS ORDERED: ENOXAPARIN NA (PORCINE) 40 MG/0.4 ML DISP.SYRIN SQ SCH (10:00)
[2019-05-03] MEDS: POLYETHYLENE GLYCOL 3350 119 GM BTL PO SCH (10:18)
[2019-05-03] MEDS ORDERED: ATORVASTATIN CA 80 MG TABLET (FP) PO SCH (10:22)
[2019-05-03] MEDS: SODIUM CHLORIDE 1,000 ML IV SCH (12:31)
--- NOTE | 2019-05-03 12:48 | ECHO ---
Version: 1 Name: DEBBIE CARRERA Exam: Adult Echocardiogram Study Date: 05/03/2019, 8:36 AM Age: 83 Years MMode/2D Measurements & Calculations LAV (MOD-bp): 56.6 ml Doppler Measurements & Calculations MV E max max: 91.2 cm/sec Med E/e': 8.9 MV A max max: 33.5 cm/sec Med Peak E' Max: 10.2 cm/sec MV E/A: 2.7 Lat E/e': 6.1 Lat Peak E' Max: 14.9 cm/sec MR max P.4 mmHg Ao max P.6 mmHg Ao V2 max: 94.1 cm/sec AI P1/2t: 367.6 msec TR max max: 300.5 cm/sec TR max P.7 mmHg Procedure A complete two-dimensional transthoracic echocardiogram was performed (2D, M-mode, Doppler and color flow Doppler). No M Mode measurements available. Left Ventricle The left ventricular ejection fraction is normal. Ejection Fraction = 65%. The transmitral spectral Doppler flow pattern is suggestive of impaired LV relaxation. The left ventricular wall motion is normal. Right Ventricle The right ventricle is not well visualized. The right ventricular systolic function is normal. Atria The left atrium is not well visualized. Right atrium not well visualized. Mitral Valve The mitral valve is normal in structure and function. There is mild to moderate mitral regurgitation . Tricuspid Valve The tricuspid valve is normal in structure and function. There is trace tricuspid regurgitation. Rig ht ventricular systolic pressure is 32 mmhg. Assuming the RA pressure is 5 mmHg. Aortic Valve The aortic valve is normal in structure and function. Mild aortic regurgitation. Pulmonic Valve The pulmonic valve is not well visualized. Great Vessels The aortic root is not well visualized. Pericardium/Pleura There is no pericardial effusion. There is no pleural effusion. Summary Statements No M Mode measurements available. The left ventricular ejection fraction is normal. Ejection Fraction = 65%. The right ventricular systolic function is normal. There is mild to moderate mitral regurgitation. Mild aortic regurgitation. MD Greg Becker 05/03/2019, 12:48 PM Ordering Physician: NOREEN GLASER Performed By: Leslie Tsai
--- NOTE | 2019-05-03 13:22 | EKG ---
Test Reason : Blood Pressure : / mmHG Vent. Rate : 092 BPM Atrial Rate : 352 BPM P-R Int : 000 ms QRS Dur : 078 ms QT Int : 376 ms P-R-T Axes : 000 -27 -53 degrees QTc Int : 464 ms ATRIAL FLUTTER WITH VARIABLE A-V BLOCK INFERIOR INFARCT , AGE UNDETERMINED ABNORMAL ECG WHEN COMPARED WITH ECG OF 05-DEC-2010 09:42, ATRIAL FLUTTER HAS REPLACED SINUS RHYTHM INFERIOR INFARCT IS NOW PRESENT NONSPECIFIC T WAVE ABNORMALITY NOW EVIDENT IN INFERIOR LEADS Confirmed by MD Diego, Otilio ([id number]) on 05/03/2019 1:22:37 PM Referred By: Confirmed By:Otilio Cortez MD
--- NOTE | 2019-05-03 17:35 | CONSULT ---
Admitting History and Physical - Smoking History Smoking history: Never smoked Have you smoked in the past 12 months: No - Alcohol/Substance Use Hx Alcohol Use: No History - Admission Reason For Visit: CVA Speech Evaluation - Communication Primary Language: URDU Communication: Yes: Simple Responses, Language Barrier Oral Expression Ability: Yes: Mild Impairment - Speech Production Apraxia: No Able to Make Needs Known: Yes: Mildly Impaired Intelligibility: Yes: WNL - Speech Characteristics Voice Loudness: Normal Voice Pitch: Yes: Normal Voice Phonatory-based Quality: Yes: Normal Speech Pattern: Normal Nasal Resonance: Normal Articulation: Yes: Precise Dysfluency: Yes: Tonic Rate of Speech: Intact Voice Comment: Vocal quality is functional for the environment with speech parameters WNL. - Language/Auditory Comprehension Follows: Yes: 1 Stage Simple Commands (in Beninese), 2 Stage Simple Commands (WFL ) Observation: Able to respond to yes/no queries: Yes, Yes/No Confusion: No, Comprehends Conversational Speech: Yes, Benefits from Slow Speech: Yes, Benefits from Repetiton: No, Benefits from Increased Volume of Speech: Yes - Language/Verbal Expression Able to Respond to Simple Queries: Yes: WNL Able to Communicate Wants and Needs: Yes: WNL Functional Communication Status: Yes: WNL Aware of Errors: Yes Use of Gestures: No Written Expression: Not examined Oral Expression: WFL Reading Comprehension: Not examined Calculations: Not examined Attention: Yes: Intact - Memory/Perception intermediate card tender Memory: Yes: Mildly Impaired Short Term Memory: Yes: WNL - Swallow Evaluation/Bedside Assessment Current Nutritional Intake: Soft Oral Secretions: Yes: WFL Tracheostomy Present: No Patient on Ventilator: No Dentition: Yes: Dental Appliance Upper, Dental Appliance Lower Facial Symmetry at Rest: Symmetrical Facial Symmetry on Retraction: Symmetrical Facial Movement: Controlled Sensation: Normal Facial Comment: Oral and facial features are WFL for speech and swallow Jaw Position: Closed at Rest Against Resistance Opening: Normal Against Resistance Closing: Normal Pucker Lips: Normal Smile: Normal Lips, Comment: WFL for speech and swallow Lingual Movement: Normal Lingual Speed of Movement: Normal Lingual Movement Strgth Against Opposition: Normal Lingual Movement Characteristics: Normal Lingual Comment: WFL for speech and swallow Soft Palate Description: Normal Color Hard Palate Description: Normal Color Gag Reflex: Strong Bite Reflex: Present Velopharyngeal Movement: Normal Laryngeal Elevation: WFL Laryngeal Movement: Able to Palpate Needs Assistance: Yes Rate of Intake: WFL Bolus Size: WFL Labial Seal: WFL Chewing: WFL Oral Prep Time: WFL A-P Transit: WFL Timing of Swallow: WFL Coughing/Throat Clear: No Change in Voice: No Other Findings/Remarks: Patient is an 83 year old female with past medical history of HTN, HLD, Atrial fibrillation, CAD, Hypothyroidism, mild cognitive impairment, osteoporosis, presented to the ED due to weakness. Pt is verbal in Beninese, A&Ox2 cooperative. Vocal quality is functional for the environment with speech parameters WNL. Volitional airway protection (without bolus) and swallow is WNL. Current diet: Soft NA controlled solids with thin liquids. Pt given PO trials of pureed, soft solids, with some total assistance revealed , adequate bolus formation and A P transport with a timely pharyngeal swallow (1-2 second average). No change in voicing or respiration after the swallow. Thin liquids trials via cup without assistance were unremarkable for dysphagia and / or aspiration at this time. Recommendations - Speech Evaluation, Impression/Plan Impression: The oral and pharyngeal swallow is adequate for po intake for purees and soft solids with thin liquids. Labial containment, mastication, bolus transport, and initiation of swallow were WNL. No coughing or changes in voicing to suggest penetration / aspiration at bedside at this time. Speech and language is WFL for her environment. [employer] Goals: Tolerate the least restrictive solid and liquid consistencies without s/s of penetration / aspiration. Short Term Goals: Tolerate soft solids and thin liquid consistencies without s/ s of penetration / aspiration. Recommended Frequency for Therapy: Follow Up PRN - Dysphagia Impressions/Plan Swallowing Skills: WFL Dysphagia Impressions: Minimal Impairment (secondary to dental status) Dysphagia Treatment Plan: Small Bites, Safe Rate, 1/2 tsp. at a time, Elevate HOB during feed, OOB for meals, OOB for 1 h. after meals Dysphagia Evaluation Summary: Continue soft solids with thin liquids as tolerated. Observe standard aspiration precautions. Provide oral care before and after meal meals. Results given to charge poster and PCP via chart. - Recommendations Diet Consistency: 1 - 2 Soft Items Medication Administration: Crushed with applesauce Liquids: Thin Liquids
--- NOTE | 2019-05-03 18:11 | CON.CARD ---
Consult Consult Specialty:: Cardiology Reason for Consultation:: AFIB. CVA - History of Present Illness Chief Complaint: Weakness. Dizziness History of Present Illness: This is an 83 year old female with a PMH of HTN, HLS, AFIB, and CAD. she presents now with weakness and dizziness. Head CT: moderate atrophy and ventricular dilatation. Focal encephalomalacia/ chronic infarct in the left frontal lobe, anteriorly. There is also suggestion of a focal infarct in the Left frontal lobe, posteriorly/superiorly , of indeterminate age. MRI: Acute left parietal cortical and right cerebellar infarcts are seen. The acute right cerebellar infarct contains a small amount of petechial blood. 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 Echocardiogram 05/03/2019: Normal LV function EF 65% Normal RV size and function Mild to moderate MR EKG AFIB ast 92 BPM - Alcohol/Substance Use Hx Alcohol Use: No - Smoking History Smoking history: Never smoked Have you smoked in the past 12 months: No Home Medications - Allergies Allergies/Adverse Reactions: Allergies Allergy/AdvReac Type Severity Reaction Status Date / Time No Known Drug Allergies Allergy Verified 01/10/19 08:27 Penicillins Allergy Verified 05/02/19 11:19 GENERAL ANESTHESIA AdvReac Severe Uncoded 01/10/19 08:27 - Home Medications Home Medications: Ambulatory Orders Levothyroxine [Synthroid -] 25 mcg PO DAILY 11/19/15 Aspirin 81 mg PO DAILY 05/02/19 Azithromycin [Zithromax 250mg Tablets -] 250 mg PO DAILY 05/02/19 Lisinopril [Zestril] 10 mg PO DAILY 05/02/19 Nebivolol HCl [Bystolic] 10 mg PO DAILY 05/02/19 Polyethylene Glycol 3350 [Miralax (For Daily Use) -] 17 gm PO DAILY 05/02/19 Simvastatin [Zocor -] 40 mg PO HS 05/02/19 Vital Signs: Vital Signs Temperature 97.5 F L 05/03/19 11:29 Pulse Rate 86 05/03/19 11:29 Respiratory Rate 18 05/03/19 11:29 Blood Pressure 162/86 05/03/19 11:29 O2 Sat by Pulse Oximetry (%) 95 05/03/19 11:29 Constitutional: Yes: No Distress Eyes: Yes: WNL HENT: Yes: WNL Neck: Yes: WNL Respiratory: Yes: CTA Bilaterally Gastrointestinal: Yes: Normal Bowel Sounds Cardiovascular: Yes: Pulse Irregular Heart Sounds: Yes: S1, S2 Extremities: Yes: WNL Edema: No Neurological: Yes: Alert, Oriented - Other Data Labs, Other Data: CBC, BMP 05/03/19 06:20 05/03/19 06:20 INR, PTT INR 0.99 (0.83-1.09) 05/02/19 11:30 Assessment/Plan 83 year old female with a PMH of HTN, HLS, AFIB, and CAD. she presents now with weakness and dizziness. Head CT: moderate atrophy and ventricular dilatation. Focal encephalomalacia/ chronic infarct in the left frontal lobe, anteriorly. There is also suggestion of a focal infarct in the Left frontal lobe, posteriorly/superiorly , of indeterminate age. MRI: Acute left parietal cortical and right cerebellar infarcts are seen. The acute right cerebellar infarct contains a small amount of petechial blood. 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 Echocardiogram 05/03/2019: Normal LV function EF 65% Normal RV size and function Mild to moderate MR EKG AFIB ast 92 BPM AFIB Rate controlled with Nebivolol (Bystolic -) 10 mg PO DAILY Not on AC Would not start AC now given MRI findings of petechial blood. Can consider AC ( Eliquis) in the future when safe from a Neuro standpoint CAD Continue Statin Continue ASA only if deemed safe at this time by Neurology
[2019-05-03] MEDS ORDERED: ATORVASTATIN CA 80 MG TABLET (FP) ONE (21:30)
[2019-05-04 05:22] VITALS: TEMP 97.9
[2019-05-04 08:17] LABS: BASO % 0.5 % (0-2.0); EOS % 4.7 % (0-4.5); HEMATOCRIT 40.3 % (32.4-45.2); HEMOGLOBIN 13.5 GM/dL (10.7-15.3); LYMPH % 47.1 % (8-40); MCH 30.4 pg (25.7-33.7); MCHC 33.5 g/dl (32.0-36.0); MEAN CELL VOLUME 90.7 fl (80-96); MEAN PLT VOLUME 11.2 fl (7.5-11.1); MONO % 10.8 % (3.8-10.2); NEUT % 36.9 % (42.8-82.8); PLATELET COUNT 135 K/MM3 (134-434); RBC 4.45 M/mm3 (3.60-5.2); RDW 15.1 % (11.6-15.6); WHITE BLOOD COUNT 5.7 K/mm3 (4.0-10.0)
[2019-05-04] MEDS: LEVOTHYROXINE NA 25 MCG TABLET (FP) PO SCH (08:24)
[2019-05-04 08:27] LABS: ALBUMIN 3.2 g/dl (3.4-5.0); BILIRUBIN,TOTAL 0.5 mg/dL (0.2-1); BLOOD UREA NITROGEN 18.6 mg/dL (7-18); CALCIUM 8.6 mg/dL (8.5-10.1); MAGNESIUM 2.4 mg/dL (1.8-2.4); POTASSIUM 4.1 mmol/L (3.5-5.1); TOT PROT 6.5 g/dl (6.4-8.2)
--- NOTE | 2019-05-04 08:37 | PN ---
Progress Note, Physician History of Present Illness: 83 F h/o HTN, HLD, Atrial fibrillation, CAD, Hypothyroidism, mild cognitive impairment, osteoporosis, admitted for acute CVA after 2 falls at home - Current Medication List Current Medications: Active Medications Aspirin (Asa -) 81 mg PO DAILY [facility] Atorvastatin Calcium (Lipitor -) 80 mg PO HS [facility] Last Admin: 05/03/19 22:08 Dose: 80 mg Sodium Chloride (Normal Saline -) 1,000 mls @ 83 mls/hr IV ASDIR [facility] Last Admin: 05/03/19 12:31 Dose: 83 mls/hr Levothyroxine Sodium (Synthroid -) 25 mcg PO DAILY@0700 [facility] Last Admin: 05/04/19 08:24 Dose: 25 mcg Nebivolol (Bystolic -) 10 mg PO DAILY [facility] Polyethylene Glycol (Miralax (For Daily Use) -) 17 gm PO DAILY [facility] Last Admin: 05/03/19 10:18 Dose: 17 gm - Objective Vital Signs: Vital Signs Temperature 97.9 F 05/04/19 05:20 Pulse Rate 93 H 05/04/19 05:20 Respiratory Rate 18 05/04/19 05:20 Blood Pressure 147/67 05/04/19 05:20 O2 Sat by Pulse Oximetry (%) 97 05/04/19 05:20 Labs: CBC, BMP 05/04/19 05:25 05/04/19 05:25 INR, PTT INR 0.99 (0.83-1.09) 05/02/19 11:30 Problem List - Problems (1) HTN (hypertension) Code(s): I10 - ESSENTIAL (PRIMARY) HYPERTENSION (2) HLD (hyperlipidemia) Code(s): E78.5 - HYPERLIPIDEMIA, UNSPECIFIED (3) A-fib Assessment/Plan: Aflutter on EKG with variable AV block on bystolic at home will restart BB, will higher hold parameters to allow for Cerebral perfusion no AC at home, will discuss with cardiology regarding AC Would not start AC now given MRI findings of petechial blood. Can consider AC ( Eliquis) in the future when safe from a Neuro standpoint Code(s): I48.91 - UNSPECIFIED ATRIAL FIBRILLATION (4) CAD (coronary artery disease) Code(s): I25.10 - ATHSCL HEART DISEASE OF [place] CORONARY ARTERY W/O ANG PCTRS (5) Hypothyroidism Code(s): E03.9 - HYPOTHYROIDISM, UNSPECIFIED (6) Mild cognitive impairment Code(s): G31.84 - MILD COGNITIVE IMPAIRMENT, SO STATED (7) Age related osteoporosis Code(s): M81.0 - AGE-RELATED OSTEOPOROSIS W/O CURRENT PATHOLOGICAL FRACTURE (8) Weakness Code(s): R53.1 - WEAKNESS (9) Prophylactic measure Code(s): Z29.9 - ENCOUNTER FOR PROPHYLACTIC MEASURES, UNSPECIFIED (10) CVA (cerebral vascular accident) Code(s): I63.9 - CEREBRAL INFARCTION, UNSPECIFIED Qualifiers: CVA mechanism: unspecified Qualified Code(s): I63.9 - Cerebral infarction, unspecified (11) Inferior ST segment depression Code(s): R94.31 - ABNORMAL ELECTROCARDIOGRAM [ECG] [EKG]
--- NOTE | 2019-05-04 08:52 | PN ---
Progress Note (short form) - Note Progress Note: Neurology CHIEF COMPLAINT: weakness PCP:Dr. Vegas HISTORY OF PRESENT ILLNESS: Patient is an 83 year old female with past medical history of HTN, HLD, Atrial fibrillation, CAD, Hypothyroidism, mild cognitive impairment, osteoporosis, presented to the ED due to weakness. Patient at bedside to aide with diagnosis. Patient reportedly experienced numbness of fingers of both hands 2 days prior admission that resolved spontaneously in a few hours.On day prior to admission, patient reported to have dizziness, that she had a mechanical fall on turning her head, falling on her right side and hitting her right shoulder and head. Denied LOC or seizures. On day of admission, patient had severe headache, that she was brought to her PCP's office, and was told to come to the ED for further evaluation. Of note, patient had not taken her medications the past 3 days, as family believed she might have thrown it out. Patient denied any fever, chills, headache, dizziness, chest pain, SOB, nausea, vomiting, abdominal pain, diarrhea. Denied weakness, numbness, or tingling. Head CT performed and showed moderate atrophy and ventricular dilatation. Focal encephalomalacia/chronic infarct in the left frontal lobe, anteriorly. There is also suggestion of a focal infarct in the Left frontal lobe, posteriorly/superiorly , of indeterminate age. Brain MRI also performed and showed acute left parietal cortical and right cerebellar infarcts are seen, discussed with patient. The acute right cerebellar infarct contains a small amount of petechial blood. 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 CT of cervical spine reviewed and demonstrated multilevel degenerative disease with mild anterior and posterior disc osteophyte complex as well as b/l uncovertebral hypertrophy. Fusion of C7-T1 posterior elements. Carotid ultrasound completed and reviewed, intimal thickening without hemodynamically significant stenosis. Distribution of infarcts suspicious for embolic phenomenon and will defer to cardiology regarding further management of atrial fibrillation and whether anticoagulation would be dictated. Of note, patient was not taking medication for several days and acute infarcts may be as a result. For now, would continue aspirin 81 mg and recommended medication compliance. Of note, LDL highly elevated to 182, possibly noncompliance? Advise increasing statin to 80mg. Cardiology note reviewed, IF patient to be on AC, no objection to this at this time, small amount of petechial blood not a deterrent at this point as she is several days out from her onset of symptoms. Active Medications Aspirin (Asa -) 81 mg PO DAILY [facility] Atorvastatin Calcium (Lipitor -) 80 mg PO HS [facility] Last Admin: 05/03/19 22:08 Dose: 80 mg Sodium Chloride (Normal Saline -) 1,000 mls @ 83 mls/hr IV ASDIR [facility] Last Admin: 05/03/19 12:31 Dose: 83 mls/hr Levothyroxine Sodium (Synthroid -) 25 mcg PO DAILY@0700 [facility] Last Admin: 05/04/19 08:24 Dose: 25 mcg Nebivolol (Bystolic -) 10 mg PO DAILY [facility] Polyethylene Glycol (Miralax (For Daily Use) -) 17 gm PO DAILY [facility] Last Admin: 05/03/19 10:18 Dose: 17 gm PHYSICAL EXAMINATION Vital Signs Period Temp Pulse Resp BP Sys/Douglass Pulse Ox Last 24 Hr 97.5 F-98.1 F 74-102 16-20 147-162/67-86 95-98 GENERAL: Awake, alert, and fully oriented, in no acute distress. HEAD: Normal with no signs of trauma. EYES: PERRLA, EOMI, sclera anicteric, conjunctiva clear. EARS, NOSE, THROAT: Dry mucous membranes. NECK: Normal range of motion, supple without lymphadenopathy, JVD, or masses. LUNGS: Breath sounds equal, clear to auscultation bilaterally. HEART: Regular rate and rhythm, normal S1 and S2 without murmur, rub or gallop. ABDOMEN: Soft, nontender, not distended, normoactive bowel sounds. MUSCULOSKELETAL: Normal range of motion at all joints. UPPER EXTREMITIES: 2+ pulses, warm, well-perfused. No peripheral edema. LOWER EXTREMITIES: 2+ pulses, warm, well-perfused. No peripheral edema. NEUROLOGICAL: Cranial nerves II-XII intact. Normal speech. Gait not observed. Motor strength 5/5, sensation intact on all extremities. PSYCHIATRIC: Cooperative. Good eye contact. SKIN: Warm, dry, normal turgor. CBCD WBC 5.7 K/mm3 (4.0-10.0) 05/04/19 05:25 RBC 4.45 M/mm3 (3.60-5.2) 05/04/19 05:25 Hgb 13.5 GM/dL (10.7-15.3) 05/04/19 05:25 Hct 40.3 % (32.4-45.2) 05/04/19 05:25 MCV 90.7 fl (80-96) 05/04/19 05:25 MCHC 33.5 g/dl (32.0-36.0) 05/04/19 05:25 RDW 15.1 % (11.6-15.6) 05/04/19 05:25 Plt Count 135 K/MM3 (134-434) 05/04/19 05:25 MPV 11.2 fl (7.5-11.1) H 05/04/19 05:25 CMP Sodium 140 mmol/L (136-145) 05/04/19 05:25 Potassium 4.1 mmol/L (3.5-5.1) 05/04/19 05:25 Chloride 108 mmol/L (98-107) H 05/04/19 05:25 Carbon Dioxide 25 mmol/L (21-32) 05/04/19 05:25 Anion Gap 7 MMOL/L (8-16) L 05/04/19 05:25 BUN 18.6 mg/dL (7-18) H 05/04/19 05:25 Creatinine 1.0 mg/dL (0.55-1.3) 05/04/19 05:25 Random Glucose 84 mg/dL (74-106) 05/04/19 05:25 Calcium 8.6 mg/dL (8.5-10.1) 05/04/19 05:25 Total Bilirubin 0.5 mg/dL (0.2-1) 05/04/19 05:25 AST 39 U/L (15-37) H 05/04/19 05:25 ALT 55 U/L (13-61) 05/04/19 05:25 Alkaline Phosphatase 118 U/L (45-117) H 05/04/19 05:25 Total Protein 6.5 g/dl (6.4-8.2) 05/04/19 05:25 Albumin 3.2 g/dl (3.4-5.0) L 05/04/19 05:25 CARDIAC ENZYMES Troponin I < 0.02 ng/ml (0.00-0.05) 05/03/19 18:00 ASSESSMENT/PLAN: Patient is an 83 year old female with past medical history of HTN, HLD, Atrial fibrillation, CAD, Hypothyroidism, mild cognitive impairment, osteoporosis, presented to the ED due to weakness. Patient at bedside to aide with diagnosis. Patient reportedly experienced numbness of fingers of both hands 2 days prior admission that resolved spontaneously in a few hours.On day prior to admission, patient reported to have dizziness, that she had a mechanical fall on turning her head, falling on her right side and hitting her right shoulder and head. Denied LOC or seizures. On day of admission, patient had severe headache, that she was brought to her PCP's office, and was told to come to the ED for further evaluation. Of note, patient has not taken her medications the past 3 days, as family believed she might have thrown it out. Patient denied any fever, chills, headache, dizziness, chest pain, SOB, nausea, vomiting, abdominal pain, diarrhea. Denied weakness, numbness, or tingling. Head CT performed and showed moderate atrophy and ventricular dilatation. Focal encephalomalacia/chronic infarct in the left frontal lobe, anteriorly. There is also suggestion of a focal infarct in the Left frontal lobe, posteriorly/superiorly , of indeterminate age. Brain MRI also performed and showed acute left parietal cortical and right cerebellar infarcts are seen. The acute right cerebellar infarct contains a small amount of petechial blood. 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 CT of cervical spine reviewed and demonstrated multilevel degenerative disease with mild anterior and posterior disc osteophyte complex as well as b/l uncovertebral hypertrophy. Fusion of C7- T1 posterior elements. Carotid ultrasound completed and awaiting official report. Distribution of infarcts suspicious for embolic phenomenon and will defer to cardiology regarding further management of atrial fibrillation and whether anticoagulation would be dictated. Of note, patient was not taking medication for several days and acute infarcts may be as a result. For now, would continue aspirin 81 mg and recommended medication compliance. Cardiology follow up regarding atrial fibrillation, monitor blood pressure, maintain < 160 /90 for now. Of note, LDL highly elevated to 182, possibly noncompliance? Patient on statin 80 mg. Cardiology note reviewed, IF patient to be on AC, no objection to this at this time, small amount of petechial blood not a deterrent at this point as she is several days out from her onset of symptoms. Physical therapy as tolerated, does spell as per case management director/primary.
[2019-05-04] MEDS: POLYETHYLENE GLYCOL 3350 119 GM BTL PO SCH (09:03)
[2019-05-04 09:39] VITALS: BP 131/84; PULSE 98
[2019-05-04] MEDS ORDERED: ASPIRIN 81 MG CHEWABLE TABLETS PO SCH (10:00)
[2019-05-04] MEDS ORDERED: NEBIVOLOL 10 MG TABLET (FP) PO SCH (10:00)
[2019-05-04] MEDS ORDERED: APIXABAN 2.5 MG TABLET PO SCH (12:15)
--- NOTE | 2019-05-04 12:33 | DS ---
Physical Exam: SUBJECTIVE: Patient seen and examined. Medically stable for discharge to home with follow up neurology OBJECTIVE: Vital Signs Period Temp Pulse Resp BP Sys/Douglass Pulse Ox Last 24 Hr 97.9 F-98.1 F 74-102 16-20 131-155/67-84 97-98 PHYSICAL EXAM Constitutional: Yes: Well Nourished, No Distress, Calm Eyes: Yes: WNL, Conjunctiva Clear HENT: Yes: WNL, Atraumatic, Normocephalic Neck: Yes: WNL, Supple, Trachea Midline Cardiovascular: Yes: WNL, Regular Rate and Rhythm Respiratory: Yes: WNL, Regular, CTA Bilaterally Gastrointestinal: Yes: WNL, Normal Bowel Sounds ...Rectal Exam: Yes: Deferred Genitourinary: Yes: WNL Breast(s): Yes: WNL Musculoskeletal: Yes: WNL Edema: No Peripheral Pulses WNL: Yes Peripheral Pulses: Left Radial: 2+, Right Radial: 2+, Left Doralis Pedis: 2+, Right Dorsalis Pedis: 2+, Left Femoral: 2+, Right Femoral: 2+ Integumentary: Yes: WNL ...Motor Strength: LLE, RLE (ambulates with cane at home) Psychiatric: Yes: WNL LABS Laboratory Results - last 24 hr 05/03/19 05/04/19 05/04/19 18:00 05:25 05:25 WBC 5.7 RBC 4.45 Hgb 13.5 Hct 40.3 MCV 90.7 MCH 30.4 MCHC 33.5 RDW 15.1 Plt Count 135 MPV 11.2 H Absolute Neuts (auto) 2.1 Neutrophils % 36.9 L Lymphocytes % 47.1 H Monocytes % 10.8 H Eosinophils % 4.7 H Basophils % 0.5 Nucleated RBC % 0 Sodium 140 Potassium 4.1 Chloride 108 H Carbon Dioxide 25 Anion Gap 7 L BUN 18.6 H Creatinine 1.0 Est GFR (CKD-EPI)AfAm 60.33 Est GFR (CKD-EPI)NonAf 52.06 Random Glucose 84 Calcium 8.6 Magnesium 2.4 Total Bilirubin 0.5 AST 39 H ALT 55 Alkaline Phosphatase 118 H Troponin I < 0.02 Total Protein 6.5 Albumin 3.2 L HOSPITAL COURSE: Date of Admission:05/02/19 Date of Discharge: 05/04/19 - ....Imaging Cat Scan: Report Reviewed (Head CT: moderate atrophy and ventricular dilatation. Focal encephalomalacia/chronic infarct in the left frontal lobe, anteriorly. There is also suggestion of a focal infarct in the Left frontal lobe , posteriorly/superiorly , of indeterminate age.) MRI: Report Reviewed (Brain MRI: Acute left parietal cortical and right cerebellar infarcts are seen. The acute right cerebellar infarct contains a small amount of petechial blood. 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.) Problem List - Problems (1) HTN (hypertension) Assessment/Plan: on lisinipril at home cont at home Code(s): I10 - ESSENTIAL (PRIMARY) HYPERTENSION (2) HLD (hyperlipidemia) Assessment/Plan: lipitor at home c/w 80mg qhs Code(s): E78.5 - HYPERLIPIDEMIA, UNSPECIFIED (3) A-fib Assessment/Plan: Aflutter on EKG with variable AV block on bystolic at home c/w BB hgh risk for AC at home given recent recurrent falls c/w asa Code(s): I48.91 - UNSPECIFIED ATRIAL FIBRILLATION (4) CAD (coronary artery disease) Assessment/Plan: EKG with nonspecific T wave abnml no c/o chest pain c/w asa 81mg Code(s): I25.10 - ATHSCL HEART DISEASE OF [place] CORONARY ARTERY W/O ANG PCTRS (5) Hypothyroidism Assessment/Plan: c/w synthroid TSH 5.75, will re-evaluate as outpt Code(s): E03.9 - HYPOTHYROIDISM, UNSPECIFIED (6) Mild cognitive impairment Assessment/Plan: supportive care fall precautions PT Code(s): G31.84 - MILD COGNITIVE IMPAIRMENT, SO STATED (7) Age related osteoporosis Code(s): M81.0 - AGE-RELATED OSTEOPOROSIS W/O CURRENT PATHOLOGICAL FRACTURE (8) Weakness Assessment/Plan: generalized weakness due to deconditioning Code(s): R53.1 - WEAKNESS (9) Prophylactic measure Assessment/Plan: FEN Fluids: adequate PO intake Electrolytes: stable Nutrition: low Na, fat soft diet Dispo discharge to home Code(s): Z29.9 - ENCOUNTER FOR PROPHYLACTIC MEASURES, UNSPECIFIED (10) CVA (cerebral vascular accident) Assessment/Plan: CT with right cerebellar infarct medication non-compliance at home c/w statin at higher dose c/w low dose asa, high risk for fall and bleed carotid dopplers without significant stenosis Code(s): I63.9 - CEREBRAL INFARCTION, UNSPECIFIED Qualifiers: CVA mechanism: unspecified Qualified Code(s): I63.9 - Cerebral infarction, unspecified (11) Inferior ST segment depression Assessment/Plan: nonspecific T wave abnml on EKG trop .02 negative seen by cardiology low suspicion for ACS Code(s): R94.31 - ABNORMAL ELECTROCARDIOGRAM [ECG] [EKG] Medically stable for discharge to home Minutes to complete discharge: 40 Discharge Summary Problems reviewed: Yes Reason For Visit: CVA Current Active Problems A-fib (Acute) Age related osteoporosis (Acute) CAD (coronary artery disease) (Acute) CVA (cerebral vascular accident) (Acute) HLD (hyperlipidemia) (Acute) HTN (hypertension) (Acute) Hypothyroidism (Acute) Inferior ST segment depression (Acute) Mild cognitive impairment (Acute) Prophylactic measure (Acute) Weakness (Acute) Hospital Course: - ....Imaging Cat Scan: Report Reviewed (Head CT: moderate atrophy and ventricular dilatation. Focal encephalomalacia/chronic infarct in the left frontal lobe, anteriorly. There is also suggestion of a focal infarct in the Left frontal lobe , posteriorly/superiorly , of indeterminate age.) MRI: Report Reviewed (Brain MRI: Acute left parietal cortical and right cerebellar infarcts are seen. The acute right cerebellar infarct contains a small amount of petechial blood. 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.) Problem List - Problems (1) HTN (hypertension) Assessment/Plan: on lisinipril at home cont at home Code(s): I10 - ESSENTIAL (PRIMARY) HYPERTENSION (2) HLD (hyperlipidemia) Assessment/Plan: lipitor at home c/w 80mg qhs Code(s): E78.5 - HYPERLIPIDEMIA, UNSPECIFIED (3) A-fib Assessment/Plan: Aflutter on EKG with variable AV block on bystolic at home c/w BB hgh risk for AC at home given recent recurrent falls c/w asa Code(s): I48.91 - UNSPECIFIED ATRIAL FIBRILLATION (4) CAD (coronary artery disease) Assessment/Plan: EKG with nonspecific T wave abnml no c/o chest pain c/w asa 81mg Code(s): I25.10 - ATHSCL HEART DISEASE OF [place] CORONARY ARTERY W/O ANG PCTRS (5) Hypothyroidism Assessment/Plan: c/w synthroid TSH 5.75, will re-evaluate as outpt Code(s): E03.9 - HYPOTHYROIDISM, UNSPECIFIED (6) Mild cognitive impairment Assessment/Plan: supportive care fall precautions PT Code(s): G31.84 - MILD COGNITIVE IMPAIRMENT, SO STATED (7) Age related osteoporosis Code(s): M81.0 - AGE-RELATED OSTEOPOROSIS W/O CURRENT PATHOLOGICAL FRACTURE (8) Weakness Assessment/Plan: generalized weakness due to deconditioning Code(s): R53.1 - WEAKNESS (9) Prophylactic measure Assessment/Plan: FEN Fluids: adequate PO intake Electrolytes: stable Nutrition: low Na, fat soft diet Dispo discharge to home Code(s): Z29.9 - ENCOUNTER FOR PROPHYLACTIC MEASURES, UNSPECIFIED (10) CVA (cerebral vascular accident) Assessment/Plan: CT with right cerebellar infarct medication non-compliance at home c/w statin at higher dose c/w low dose asa, high risk for fall and bleed carotid dopplers without significant stenosis Code(s): I63.9 - CEREBRAL INFARCTION, UNSPECIFIED Qualifiers: CVA mechanism: unspecified Qualified Code(s): I63.9 - Cerebral infarction, unspecified (11) Inferior ST segment depression Assessment/Plan: nonspecific T wave abnml on EKG trop .02 negative seen by cardiology low suspicion for ACS Code(s): R94.31 - ABNORMAL ELECTROCARDIOGRAM [ECG] [EKG] Medically stable for discharge to home - Instructions Diet, Activity, Other Instructions: DISCHARGE YOUR VISIT You came to the hospital because you had a fall at home. You had an CSan of the head that was normal and an ultrasound of your neck that was also normal. You were seen by the neurologist and the mail carrier and clerk. MEDICATIONS Please continue to take your home medications as prescribed. It it very important you take all your medications every day. There was some changes: NEW Eliquis 2.5 mg twice a day Lipitor 80mg at bedtime CONTINUE: Baby Aspirin daily Synthroid 25mcg daily Bystolic 10mg daily Miralax daily Lisinipril DIET Continue your home diet. Low fat, low cholesterol ADDITIONAL CARE Please make an appointment to see your primary care provider, Dr Kirby 1 week from today. ADDITIONAL INFORMATION Please call 911 or come directly to the emergency department if you experience unusual headache, vision change, shortness of breath, chest pain, numbness, tingling, loss of alertness/awareness, loss of function, unusual bleeding or any alarming symptoms. Thank you for allowing me to care for you. Romero Horne, [facility], [facility] [phone] Referrals: Billy Vegas MD [Primary Care Provider] - Sha Marley MD [Staff Physician] - 3 Weeks (Neurology-call for appointment) Disposition: HOME - Home Medications Comprehensive Discharge Medication List: Ambulatory Orders Levothyroxine [Synthroid -] 25 mcg PO DAILY 11/19/15 Aspirin 81 mg PO DAILY 05/02/19 Lisinopril [Zestril] 10 mg PO DAILY 05/02/19 Nebivolol HCl [Bystolic] 10 mg PO DAILY 05/02/19 Polyethylene Glycol 3350 [Miralax 119 gm Btl -] 17 gm PO DAILY 05/02/19 Apixaban [Eliquis -] 2.5 mg PO BID #60 tablet 05/04/19 Atorvastatin Ca [Lipitor] 80 mg PO HS #30 tablet 05/04/19 Problem List - Problems (1) HTN (hypertension) Code(s): I10 - ESSENTIAL (PRIMARY) HYPERTENSION (2) HLD (hyperlipidemia) Code(s): E78.5 - HYPERLIPIDEMIA, UNSPECIFIED (3) A-fib Code(s): I48.91 - UNSPECIFIED ATRIAL FIBRILLATION (4) CAD (coronary artery disease) Code(s): I25.10 - ATHSCL HEART DISEASE OF [place] CORONARY ARTERY W/O ANG PCTRS (5) Hypothyroidism Code(s): E03.9 - HYPOTHYROIDISM, UNSPECIFIED (6) Mild cognitive impairment Code(s): G31.84 - MILD COGNITIVE IMPAIRMENT, SO STATED (7) Age related osteoporosis Code(s): M81.0 - AGE-RELATED OSTEOPOROSIS W/O CURRENT PATHOLOGICAL FRACTURE (8) Weakness Code(s): R53.1 - WEAKNESS (9) Prophylactic measure Code(s): Z29.9 - ENCOUNTER FOR PROPHYLACTIC MEASURES, UNSPECIFIED (10) CVA (cerebral vascular accident) Code(s): I63.9 - CEREBRAL INFARCTION, UNSPECIFIED Qualifiers: CVA mechanism: unspecified Qualified Code(s): I63.9 - Cerebral infarction, unspecified (11) Inferior ST segment depression Code(s): R94.31 - ABNORMAL ELECTROCARDIOGRAM [ECG] [EKG] This patient is new to me today: No Emergency Visit: Yes ED Registration Date: 05/02/19 Care time: The patient presented to the Emergency Department on the above date and was hospitalized for further evaluation of their emergent condition. Critical Care patient: No - Discharge Referral Referred to [facility] Med [facility] No
[2019-05-04] MEDS ORDERED: APIXABAN 5 MG TABLET ONE (13:09)
== END 2019-05-04 13:20 | disposition home or self-care (01) | DRG 64 ==
LOC: JER 10:55 → JERBED 14:21
PROVIDERS: ATTEND Nurse Practitioner Acute Care
DX: I63.9 Cerebral infarction, unspecified (principal); I61.4 Nontraumatic intracerebral hemorrhage in cerebellum; I48.91 Unspecified atrial fibrillation; I25.10 Atherosclerotic heart disease of native coronary artery without angina pectoris; I10 Essential (primary) hypertension; E03.9 Hypothyroidism, unspecified; M81.0 Age-related osteoporosis without current pathological fracture; E78.5 Hyperlipidemia, unspecified; G31.84 Mild cognitive impairment of uncertain or unknown etiology
CPT/HCPCS: 36415; 70450-TC; 70551-TC; 72125-TC; 73030-TC-RT-FY; 80053; 80061; 81003; 82607; 83036; 83721; 83735; 84100; 84443; 84484; 85025; 85610; 85730; 87086; 93005; 93010; 93306-TC; 93880-TC; 99285-25; J7030

== ENCOUNTER 2021-07-17 16:33 | Emergency (ER) | payer MEDICARE, OTHER ==
[2021-07-17 16:47] VITALS: TEMP 98.4; BMI 28.3
[2021-07-17 19:21] VITALS: BP 150/87; PULSE 81
[2021-07-17] MEDS ORDERED: ACETAMINOPHEN 325 MG TABLET (FP) PO ONE (19:36)
[2021-07-17] MEDS ORDERED: ACETAMINOPHEN 325 MG TABLET (FP) ONE (19:46)
== END 2021-07-17 20:07 | disposition home or self-care (01) ==
LOC: JER 16:33
DX: R51.9 Headache, unspecified (principal); W01.0XXA Fall on same level from slipping, tripping and stumbling without subsequent striking against object, initial encounter
CPT/HCPCS: 70450-TC; 72125-TC; 99284-25

== ENCOUNTER 2022-05-09 07:33 | Emergency (ER) | payer MEDICARE, OTHER ==
[2022-05-09] MEDS ORDERED: RAPID SEQUENCE INTUBATION KIT NR ONE (07:35)
[2022-05-09] MEDS ORDERED: NOREPINEPHRINE BITARTRATE/D5W 8 MG/250 ML BAG IVPB ONE (07:47)
[2022-05-09 07:56] VITALS: BMI 28.3
[2022-05-09] MEDS ORDERED: ASPIRIN 300 MG SUPP.RECT RC ONE (07:56)
[2022-05-09] MEDS ORDERED: SODIUM CHLORIDE 1,000 ML IV STA (08:00)
[2022-05-09] MEDS ORDERED: NOREPINEPHRINE BITARTRATE/D5W 8 MG/250 ML BAG IVPB SCH (08:00)
[2022-05-09] MEDS ORDERED: ATROPINE SULFATE 1 MG/10 ML DISP.SYRIN ONE (08:05)
[2022-05-09] MEDS ORDERED: CALCIUM CHLORIDE 1 GM/10 ML *DISP.SYRIN ONE (08:11)
[2022-05-09] MEDS ORDERED: EPINEPHrine 1:10,000 (P-F SYR) 1 MG/10 ML DISP.SYRIN ONE (08:18)
[2022-05-09 08:21] LABS: HEMATOCRIT 35.7 % (32.4-45.2); HEMOGLOBIN 11.8 GM/dL (10.7-15.3); RBC 3.92 M/mm3 (3.60-5.2); RDW 15.5 % (11.6-15.6); WHITE BLOOD COUNT 11.5 K/mm3 (4.0-10.0)
[2022-05-09 08:39] LABS: CHLORIDE 109 mmol/L (98-107); SODIUM 144 mmol/L (136-145)
[2022-05-09 08:41] LABS: ANION GAP 13 MMOL/L (8-16); BLOOD UREA NITROGEN 19.2 mg/dL (7-18); CALCIUM 8.8 mg/dL (8.5-10.1); CO2 22 mmol/L (21-32); GLUCOSE,RANDOM 124 mg/dL (74-106)
[2022-05-09 08:42] LABS: ALBUMIN 3.3 g/dl (3.4-5.0); MEAN PLT VOLUME 10.1 fl (7.5-11.1); PLATELET COUNT 150 10^3/uL (134-434)
[2022-05-09 08:45] LABS: CREATININE 1.3 mg/dL (0.55-1.3); SGOT/AST 39 U/L (15-37); SGPT/ALT 34 U/L (13-61)
[2022-05-09 08:46] LABS: BILIRUBIN,TOTAL 0.6 mg/dL (0.2-1)
[2022-05-09 08:47] LABS: ALK PHOS 112 U/L (45-117)
[2022-05-09 09:25] LABS: INR 1.03 (0.83-1.09)
[2022-05-09 10:53] VITALS: TEMP 97.6
[2022-05-09 10:56] VITALS: BP 0/0; PULSE 0; RESP 0
[2022-05-09 11:43] LABS: ANISOCYTOSIS 0; HELMET CELLS 0; HOWELL-JOLLY BODIES 0; MACROCYTOSIS 0; OVALOCYTE 0; ROULEAU 0; SICKELED CELLS 0; TARGET CELLS 0; TEAR DROP CELLS 0; TOXIC GRANULATION 0
== END 2022-05-09 11:22 | disposition expired ==
LOC: JER 07:33
PROC: 3E033GC Introduction of Other Therapeutic Substance into Peripheral Vein, Percutaneous Approach (ICD-10-PCS; principal; 2022-05-09)
PROC: 5A12012 Performance of Cardiac Output, Single, Manual (ICD-10-PCS; 2022-05-09)
DX: I46.9 Cardiac arrest, cause unspecified (principal)
CPT/HCPCS: 36415; 80053; 84484; 85025; 85610; 86850; 86900; 86901; 93005; 93010; 99285-25; C9803-CS; U0003; U0005